=== PATIENT | female | born 1950 | race Caucasian/White ===

== ENCOUNTER 2020-07-19 11:41 | Day surgery (SDC) | payer MEDICARE, BC ==
[~2020-07-19] VITALS: Ht 152.4 cm; Wt 56.7 kg
--- NOTE | ~2020-07-19 | HEMODYNAMI ---
PATIENT:KRISHAN PUGA MEDICAL RECORD: [id number] : 50 LOCATION:[facility] ADMISSION DATE: 07/19/20 Generatedon:114:40 Patient name: KRISHAN PUGA Patient #: [id number] SSN: DO B: 1950 Date of study: 07/19/2020 Page: Of Hemodynamic Procedure Report Patient Data Patient Demographics Procedure consent was obtained First Name: KRISHAN Gender: Female Last Name: VIVIEN : 1950 Middle Initial: R Age: 69 year(s) Patient #: [id number] Race: Unknown Additional ID: [id number] Contact details [address]: [address] [place] [address] State: [place] City: [place] Zip code: [address] Past Medical History Allergies Allergen Reaction Date Comments Reported Other allergy 07/19/2020 CODEINE, SULFA Admission Admission Data Admission Date: 07/19/2020 Admission Time: 11:41 Procedure Procedure Types Cath Procedure Diagnostic Procedure PPM/ICD Loop Recorder Implant Procedure Description Procedure Date Procedure Date: 07/19/2020 Procedure Start Time: 14:29 Procedure End Time: 14:37 Procedure Staff Name Function Fausto Guerrero MD Performing Physician Joi Santoyo RT Monitor Toña Kimball RT Scrub Norm Jensen RN Nurse Procedure Data Cath Procedure Fluoroscopy Diagnostic fluoroscopy Total fluoroscopy Time: 0 time: 0 min min Diagnostic fluoroscopy Total fluoroscopy dose: 0 dose: 0 mGy mGy Estimated blood loss: 5 ml Procedure Complications No complications Procedure Medications Medication Administration Route Dosage 0.9% NaCl I.V. 100 ml/hr Versed I.V. 1 mg Fentanyl I.V. 50 mcg Ancef (1Gm/50ml NS) I.V.P.B 1 g Hemodynamics Rest Heart Rate: 82 (bpm) Snapshots Pre Cath Intra NCS Post Cath Vital Signs Time Heart Resp SPO2 etCO2 NIBP (mmHg) Rhythm Pain Sedation Rate (ipm) (%) (mmHg) Status Level (bpm) 14:27:29 80 16 95 0 134/72(105) NSR 0 (11) 10(A) , No pain 14:31:45 81 16 97 0 143/81(114) NSR 0 (11) 10(A) , No pain 14:36:05 75 16 98 0 132/72(106) NSR 0 (11) 10(A) , No pain Medications Time Medication Route Dose Verified Delivered Reason Notes Effective ness by by 14:26:27 Ancef I.V.P.B 1 g Norm Norm Per (1Gm/50ml Mikey Jensen physician NS) RN RN 14:26:53 0.9% NaCl I.V. 100 Norm Norm Per ml/hr Mikey Jensen physician RN RN 14:28:31 Versed I.V. 1 mg Norm Norm for Lorigan Lorigan sedation RN RN 14:28:44 Fentanyl I.V. 50 Norm Norm for mcg Lorigan Lorigan sedation RN blender laborer Log Time Note 14:14:44 Informed consent obtained and on chart 14:15:05 Procedure Status PPM/ Gen Change/ Lead Revision/ Temp. 14:15:07 Norm Jensen RN sent for patient. Start room use. 14:15:08 Time tracking: Regular hours (M-F 7:00 - 5:00) 14:15:13 Plan of Care:Hemodynamics will remain stable., Cardiac rhythm will remain stable., Comfort level will be maintained., Respiratory function will remain adequate., Patient/ family verbilizes understanding of procedure., Procedure tolerated without complication., Recovers from procedure without complications.. 14:16:19 H&P Date Dictated: 06/28/2020 Within 30 days and on chart., H&P Addendum completed by physician on day of procedure. (MUST COMPLETE FOR ALL OUTPATIENTS). 14:16:32 Patient allergic to Other allergyCODEINE, SULFA 14:19:10 Patient arrived from Pre/Post Procedure Room to CCL 1. Patient remains on bed/stretcher for procedure. 14:19:12 Warm blankets applied, and eileen hugger turned on for patient comfort. 14:19:12 Correct patient and procedure confirmed by team. 14:19:12 ECG and BP/O2 sat monitors applied to patient. 14:19:14 Pre-procedure instructions explained to patient. 14:19:14 Pre-op teaching completed and patient verbalized understanding. 14:19:15 Family in patients room. 14:19:17 Patient NPO since Midnight. 14:19:19 Is the patient allergic to Iodine/contrast media? Yes. 14:20:39 Is patient on blood thinner?No 14:20:40 Patient diabetic? No. 14:20:43 Patient not . Patient is over age 55. 14:20:45 Previous problem with sedation/anesthesia? No ? 14:20:46 Snore? Yes 14:20:47 Sleep apnea? No 14:20:47 Deviated septum? No 14:20:48 Opens mouth fully? No 14:20:49 Sticks out tongue? Yes 14:20:51 Airway obstruction? No ? 14:20:53 Dentures? No ? 14:20:56 Patient pain scale 0/10 ?. 14:21:06 IV patent on arrival in left antecubital with 0.9% NaCl at [facility]. 14:21:13 Mid Chest area was prepped with chlora-prep and draped in sterile fashion 14:21:14 Alarms reviewed by R. N. 14:21:15 Sharps counted by scrub and verified by R.N. 14:24:48 [employer] Linq Loop Recorder opened to sterile field. 14:26:22 Vital chart was started 14:26:27 Ancef (1Gm/50ml NS) 1 g I.V.P.B was administered by Norm Jensen RN; Per physician; Verbal order read back and verified. 14:26:29 Baseline sample Acquired. 14:26:34 Rhythm: sinus rhythm 14:26:35 Full Disclosure recording started 14::53 0.9% NaCl 100 ml/hr I.V. was administered by Norm Jensen RN; Per physician; Verbal order read back and verified. 14::59 --------ALL STOP TIME OUT------ 14::59 Final Timeout: patient, procedure, and site verified with staff and physician. All members of the team are in agreement. 14:27:02 Mid Chest site verified by team. 14:27:05 Fire Safety Assessment: A--An alcohol-based skin anteseptic being used preoperatively., C--Open oxygen or nitrous oxide is being used. 14:27:07 Physical assessment completed. ASA score P 2 - A patient with mild systemic disease as per Fausto Guerrero MD. 14:27:11 Sedation plan: IV Moderate Sedation Medication:Versed, Fentanyl 14:28:31 Versed 1 mg I.V. was administered by Norm Jensen RN; for sedation; Verbal order read back and verified. 14:28:35 Procedure started. 14:28:44 Fentanyl 50 mcg I.V. was administered by Norm Jensen RN; for sedation; Verbal order read back and verified. 14:29:18 Lidocaine 1% was administered to mid chest by Fausto Guerrero MD . 14:29:28 Incision made to mid chest. 14:30:50 Linq was inserted subcutaneously to mid chest. 14:31:02 Mid Chest incision was dressed with Dermabond and Steri Strip 14:32:09 Procedure ended.(Physican Out) 14:33:47 Fluoroscopy time 00.00 minutes. 14:33:49 Fluoroscopy dose: 0 mGy 14:33:49 Flurop Dose total: 0 14:33:58 Post-procedure physical assessment completed. ASA score P 2 - A patient with mild systemic disease as per Fausto Guerrero MD. 14:34:01 Post procedure rhythm: sinus rhythm 14:34:04 Estimated blood loss: 5 ml 14:34:05 Post procedure instruction explained to patient.Patient verbalizes understanding. 14:34:05 Patient needs reinforcement of post procedure teaching. 14:34:29 Procedure and supply charges have been captured, reviewed, submitted and are correct. 14:34:31 Procedure Complication : No complications 14:37:27 Vital chart was stopped 14:37:31 Operative report dictated upon procedure completion. 14:37:31 See physician's report for complete and final results. 14:37:32 Report given to Pre/Post Procedure Room. 14:37:35 Patient transfered to Pre/Post Procedure Room with Bed. 14:37:38 Procedure ended. 14:37:38 Full Disclosure recording stopped 14:37:42 End room use (Document Last) 14:40:14 Procedure ended.(Physican Out) Device Usage Item Name Manufacture Quantity Catalog Hospital Part Current Minimal Lot# / Number Charge Number Stock Stock Serial# Code Medtronic Medtronic 1 [id number] Linq Loop Recorder Signature Audit [place] Stage Time Signature Unsigned Intra-Procedure 07/19/2020 Toña Kimball 2:39:57 PM RT(R) Intra-Procedure 07/19/2020 Norm 2:40:14 PM Mikey TEJEDA Intra-Procedure 07/19/2020 Fausto Medeiros 2:40:30 PM Mike [address] [address] [place] [address]
[2020-07-19] MEDS ORDERED: SINEMET 25-1001 EAC1 PO (12:06)
[2020-07-19] MEDS ORDERED: COZAAR25 MG PO (12:07)
[2020-07-19] MEDS ORDERED: CELEXA20 MG PO (12:07)
[2020-07-19] MEDS ORDERED: HCTZ25 MG PO (12:08)
[2020-07-19] MEDS ORDERED: MULTI-DAY VITAM1 TAB PO (12:09)
[2020-07-19] MEDS ORDERED: VITAMIN D-32000 UNIT PO (12:09)
[2020-07-19] MEDS ORDERED: POTASSIUM99 M1 PO (12:10)
[2020-07-19] MEDS ORDERED: MAG-OX 400 MG400 MG PO (12:10)
[2020-07-19] MEDS ORDERED: VITAMIN B-122500 MCG PO (12:10)
[2020-07-19] MEDS ORDERED: CALCIUM 600 +1 EAC3 PO (12:11)
[2020-07-19 12:33] VITALS: BP 152/80; Ht 152.4 cm; Wt 56.7 kg
--- NOTE | 2020-07-19 14:45 | NUR ---
PT REC'D TO CATH RECOVERY ROOM 3 VIA STRETCHER. MONITORS ESTAB. AT BS. SEE INSPECTOR SCALES. ALARMS ON AND C/L IN REACH.
--- NOTE | 2020-07-19 15:00 | NUR ---
DR. ROSEN IN TO SEE PT, UPDATE GIVEN AND QUESTIONS ANSWERED. L CHEST SITE C/D/I, NO S/S DRAINAGE OR REDNESS. VSS. PT ATE MCDONALDS THAT BROUGHT. DENIES PAIN OR NEEDS. C/L IN REACH.
--- NOTE | 2020-07-19 15:32 | NUR ---
JOAQUIM WITH [employer] HERE, LINQ PROGRAMMED. PT AND INSTRUCTED ON USE OF OF LINQ RECORDER. ALL EQUIPMENT AND INSTRUCTIONS WILL BE SENT WITH PT. PT HAS F/U APPT ON 07/25 WITH JD.
--- NOTE | 2020-07-19 15:40 | NUR ---
L CHEST INCISION C/D/I, NO REDNESS OR DRAINAGE NOTED. VSS.
--- NOTE | 2020-07-19 15:47 | NUR ---
ALL DISCHARGE INSTRUCTIONS REVIEWED WITH PT AND , BOTH VERBALIZE UNDERSTANDING. PIV D/C'D INTACT, DSG APPLIED. PT UP TO GET DRESSED WITH ASSIST.
--- NOTE | 2020-07-19 15:52 | NUR ---
PT D/C'D VIA WC TO PRIVATE VEHICLE WITH ALL PAPERWORK AND BELONGINGS.
--- NOTE | 2020-07-20 11:32 | OP ---
PATIENT NAME: KRISHAN VALERA MEDICAL RECORD: [id number] :50 LOCATION:[facility] ADMISSION DATE: SURGEON: OSVALDO ROSEN MD DATE OF OPERATION: 07/19/2020 PROCEDURE: LINQ monitor. INDICATION: Syncope in origin. DESCRIPTION OF PROCEDURE: After local anesthesia with lidocaine, a single stab incision was made and a blunt dissection was carried out. Next, the LINQ was placed into the intercostal space in the usual fashion and the incision was closed with Steri-Strips. IMPRESSION: Successful lead placement for Krishan Valera. COMPLICATIONS: None. FLOOR: Stable. TRANSINT:[id number] Voice Confirmation ID: [id number] DOCUMENT ID: [id number] OSVALDO ROSEN MD at 1132 CC: [id number] DICTATION DATE: 07/19/20 1519 CHIEF HYDROELECTRIC STATION OPERATOR: 07/19/20 2301 [facility] [place] 07/19/20 [id number] [place] [address]
== END 2020-07-19 15:52 | disposition home or self-care (01) ==
LOC: D.CATH 11:41
PROVIDERS: ATTEND Internal Medicine Interventional Cardiology
DX: R55 Syncope and collapse (principal); I10 Essential (primary) hypertension

== ENCOUNTER 2020-10-06 11:29 | Day surgery (SDC) | payer MEDICARE, BC ==
[~2020-10-06] VITALS: Ht 152.4 cm; Wt 55.5 kg
--- NOTE | ~2020-10-06 | HEMODYNAMI ---
PATIENT:KRISHAN PUGA MEDICAL RECORD: [id number] : 50 LOCATION:[facility] ADMISSION DATE: 10/06/20 Generatedon:113:56 Patient name: KRISHAN PUGA Patient #: [id number] SSN: [id number] : 1950 Date of study: 10/06/2020 Page: Of Hemodynamic Procedure Report Patient Data Patient Demographics Procedure consent was obtained First Name: KRISHAN Gender: Female Last Name: VIVIEN : 1950 Middle Initial: R Age: 69 year(s) Patient #: [id number] Race: SSN: [id number] Additional ID: [id number] Contact details Address: [address] [place] [address] State: [place] City: [place] Zip code: [address] Past Medical History Allergies Allergen Reaction Date Comments Reported Other allergy 07/19/2020 CODEINE, SULFA Admission Admission Data Admission Date: 10/06/2020 Admission Time: 11:29 Height (in.): 60 BSA: 1.52 (m2) Height (cm.): 152.4 BMI: 24.02 (kg/m2) Weight (lbs.): 123 Weight (kg.): 55.79 Lab Results Lab Result Date: 10/06/2020 Lab Result Time: 0:00 Biochemistry Name Units Result Min Max BUN mg/dl 13 --(--*-)-- 7 18 Creatinine mg/dl 0.7 --(*---)-- 0.6 1.3 Procedure Procedure Types Cath Procedure Diagnostic Procedure PPM/ICD PPM Dual Implant Sedation Charges Moderate Sedation 40-54 minutes Procedure Description Procedure Date Procedure Date: 10/06/2020 Procedure Start Time: 13:21 Procedure End Time: 13:52 Procedure Staff Name Function Fausto Guerrero MD Performing Physician Troy Machuca RN Nurse Chica Cotter RT Monitor Nya Quinones RT Scrub Brock Jackson MD Assisting physician Adiel Lamas RN Nurse Procedure Data Cath Procedure Fluoroscopy Diagnostic fluoroscopy Total fluoroscopy Time: 1.6 time: 1.6 min min Diagnostic fluoroscopy Total fluoroscopy dose: dose: 13.45 mGy 13.45 mGy Estimated blood loss: 5 ml Procedure Complications No complications Procedure Medications Medication Administration Route Dosage 0.9% NaCl I.V. 25 ml/hr Ancef (1Gm/50ml NS) I.V.P.B 1 g Ancef Irrigation Topical 1 g (1gm/500ml NS) Lidocaine 1% added to field 20 Versed I.V. 1 mg Fentanyl I.V. 50 mcg Versed I.V. 1 mg Fentanyl I.V. 50 mcg Versed I.V. 1 mg Fentanyl I.V. 50 mcg Hemodynamics Rest BSA: 1.52 (m2) O2 Consumption: Estimated: 142.08 (ml/min) O2 Consumption indexed : Estimated:93.47 (ml/min/m) Heart Rate: 73 (bpm) Snapshots Pre Cath Intra NCS Post Cath Vital Signs Time Heart Resp SPO2 NIBP (mmHg) Rhythm Pain Sedation Rate (ipm) (%) Status Level (bpm) 12:51:51 87 17 96 142/80(94) NSR 0 (11) 10(A) , No pain 12:56:09 83 22 98 136/63(99) NSR 0 (11) 10(A) , No pain 13:01:08 81 19 100 104/86(92) NSR 0 (11) 10(A) , No pain 13:06:03 77 19 100 126/64(91) NSR 0 (11) 10(A) , No pain 13:10:17 76 14 99 114/61(84) NSR 0 (11) 10(A) , No pain 13:14:27 76 12 99 129/63(107) NSR 0 (11) 10(A) , No pain 13:18:43 75 11 99 117/58(80) NSR 0 (11) 10(A) , No pain 13:22:57 77 12 99 109/54(75) NSR 0 (11) 9(A) , No pain 13:27:09 79 10 99 107/53(79) Paced 0 (11) 9(A) , No pain 13:31:17 99 11 99 91/57(66) Paced 0 (11) 9(A) , No pain 13:35:19 84 11 98 101/59(87) Paced 0 (11) 9(A) , No pain 13:39:24 77 12 99 114/59(83) Paced 0 (11) 9(A) , No pain 13:43:34 89 13 100 113/64(96) Paced 0 (11) 9(A) , No pain 13:47:38 86 14 100 123/75(96) Paced 0 (11) 10(A) , No pain 13:52:29 84 12 99 135/68(94) Paced 0 (11) 10(A) , No pain Medications Time Medication Route Dose Verified Delivered Reason Notes Effectiv eness by by 12:53:03 0.9% NaCl I.V. 25 Fausto Troy used for ml/hr St Mike Machuca RN procedure 12:53:13 Ancef I.V.P.B 1 g Fausto Troy used for (1Gm/50ml St Mike Machuca RN procedure NS) 12:53:23 Ancef Topical 1 g Fausto Congregation used for Irrigation St Mike Jackson MD procedure (1gm/500ml NS) 12:53:38 Lidocaine added 20ml Fausto Congregation for local 1% to vial St Mike Jackson MD anesthetic field x2 13:18:26 Versed I.V. 1 mg Fausto Troy for CesarMike Machuca RN sedation 13:18:36 Fentanyl I.V. 50 Fausto Troy for [facility] CesarMike Machuca RN sedation 13:22:00 Versed I.V. 1 mg Fausto Troy for CesarMike Machuca RN sedation 13:22:04 Fentanyl I.V. 50 Fausto Troy for [facility] CesarMike Machuca RN sedation 13:24:10 Versed I.V. 1 mg Fausto Troy for Cesar Sven RN sedation 13:24:13 Fentanyl I.V. 50 Fausto Troy for [facility] Cesar Sven RN sedation Procedure Log Time Note 12:29:34 Informed consent obtained and on chart 12:44:43 Adiel Lamas RN sent for patient. Start room use. 12:50:41 Vital chart was started 12:53:03 0.9% NaCl 25 ml/hr I.V. was administered by Troy Machuca RN; used for procedure; Verbal order read back and verified. 12:53:13 Ancef (1Gm/50ml NS) 1 g I.V.P.B was administered by Troy Machuca RN; used for procedure; Verbal order read back and verified. 12:53:20 Patient Height : 60 inches 12:53:22 Patient Weight : 123 lbs 12:53:23 Ancef Irrigation (1gm/500ml NS) 1 g Topical was administered by Brock Jackson MD; used for procedure; Verbal order read back and verified. 12:53:38 Lidocaine 1% 20ml vial x2 added to field was administered by Brock Jackson MD; for local anesthetic; Verbal order read back and verified. 12:54:19 Lab Result : BUN 13 mg/dl 12:54:19 Lab Result : Creatinine 0.7 mg/dl 12:54:26 Procedure Status PPM/ Gen Change/ Lead Revision/ Temp. 12:54:49 Time tracking: Regular hours (M-F 7:00 - 5:00) 12:54:53 Plan of Care:Hemodynamics will remain stable., Cardiac rhythm will remain stable., Comfort level will be maintained., Respiratory function will remain adequate., Patient/ family verbilizes understanding of procedure., Procedure tolerated without complication., Recovers from procedure without complications.. 12:55:12 Patient received from Pre/Post Procedure Room to CCL 3 Alert and oriented. Tansferred to table in Supine position. 12:55:14 Warm blankets applied, and eileen hugger turned on for patient comfort. 12:55:14 Correct patient and procedure confirmed by team. 12:55:15 Baseline sample Acquired. 12:55:15 ECG and BP/O2 sat monitors applied to patient. 12:55:21 Rhythm: sinus rhythm 12:55:23 Full Disclosure recording started 12:55:27 H&P Date Dictated: 10/06/2020 Within 30 days and on chart., H&P Addendum completed by physician on day of procedure. (MUST COMPLETE FOR ALL OUTPATIENTS). 12:55:28 Pre-procedure instructions explained to patient. 12:55:28 Pre-op teaching completed and patient verbalized understanding. 12:55:33 Family in patients room. 12:55:34 Patient NPO since Midnight. 12:55:37 Is the patient allergic to Iodine/contrast media? No. 12:55:40 Was the patient premedicated? No 12:55:46 Is patient on blood thinner?No 12:56:20 Patient diabetic? No. 12:56:24 Previous problem with sedation/anesthesia? No ? 12:56:37 Snore? Yes 12:56:39 Sleep apnea? No 12:56:40 Deviated septum? No 12:56:41 Opens mouth fully? Yes 12:56:42 Sticks out tongue? Yes 12:56:43 Airway obstruction? No ? 12:56:46 Dentures? No ? 12:57:02 Left chest area was prepped with chlora-prep and draped in sterile fashion 12:57:03 Alarms reviewed by R. N. 12:57:04 Sharps counted by scrub and verified by R.N. 12:57:14 Use device set TED PPM 12:57:15 2-0 Ticron Multipack ([id number]) opened to sterile field. 12:57:16 3-0 Vicryl Single Pack [id number] opened to sterile field. 12:57:16 5-0 Monocryl PS2 [id number] opened to sterile field. 12:57:17 Cautery Tip Control Operator Flow Coat opened to sterile field. 12:57:18 Cautery Pushbutton Pencil opened to sterile field. 12:57:19 Mepilex Dressing ([id number]) opened to sterile field. 12:57:34 [employer]tr[employer] union contract representative Zander Rascon present for procedure. 12:57:47 Pre sharps counted by scrub and verified by RN: Sutures: 7; Sponges: 5; Stick needles: 2; Skin needles: 2; Blade: 1; Cautery: 1 12:57:49 Grounding pad site Left thigh. 12:57:50 Grounding pad site free from injury. 13:05:06 Sedation plan: IV Moderate Sedation Medication:Versed, Fentanyl 13:08:51 Physician paged 13:17:10 Physician arrived 13:17:10 --------ALL STOP TIME OUT------ 13:17:11 Final Timeout: patient, procedure, and site verified with staff and physician. All members of the team are in agreement. 13:17:14 Left chest site verified by team. 13:17:18 Fire Safety Assessment: A--An alcohol-based skin anteseptic being used preoperatively., C--Open oxygen or nitrous oxide is being used., D--An ESU, laser, or fiber-optic light is being used. 13:17:23 Physical assessment completed. ASA score P 2 - A patient with mild systemic disease as per Fausto Guerrero MD. 13:18:26 Versed 1 mg I.V. was administered by Troy Machuca RN; for sedation; Verbal order read back and verified. 13:18:36 Fentanyl 50 mcg I.V. was administered by Troy Machuca RN; for sedation; Verbal order read back and verified. 13:20:39 Procedure started. 13:21:13 Lidocaine 1% was administered to left subclavicular area by Brock Jackson MD . 13:21:21 Incision made to left subclavicular area. 13:22:00 Versed 1 mg I.V. was administered by Troy Machuca RN; for sedation; Verbal order read back and verified. 13:22:04 Fentanyl 50 mcg I.V. was administered by Troy Machuca RN; for sedation; Verbal order read back and verified. 13:22:[address] Medtronic [address] ALB[address] XT [address] Generator [id number] opened to sterile field. 13:23:12 Medtronic 4574-45 PPM Lead opened to sterile field. 13:24:10 Versed 1 mg I.V. was administered by Troy Machuca RN; for sedation; Verbal order read back and verified. 13:24:13 Fentanyl 50 mcg I.V. was administered by Troy Machuca RN; for sedation; Verbal order read back and verified. 13:26:21 Medtronic 4074-52 PPM Lead opened to sterile field. 13:28:32 Generator pocket made/opened. 13:28:36 Left subclavian vein accessed with 7Fr Peel Away Sheath. 13:28:38 Left subclavian vein accessed with 7Fr Peel Away Sheath. 13:28:44 Ventricular lead inserted and advanced. 13:28:46 Atrial lead inserted and advanced. 13:32:10 Ventricular lead positioned. 13:32:13 Atrial lead positioned. 13:32:15 Peel-a-way sheath was split and removed. 13:32:52 Ventricular lead attachment was completed with 2-0 ticron. 13:32:56 Atrial lead attachment was completed with 2-0 ticron. 13:32:59 PPM Dual was attached to lead(s) and inserted into pocket. 13:39:10 PPM Dual was removed.. 13:39:15 Ventricular lead repositioned. 13:40:52 Ventricular lead attachment was completed with 2-0 ticron. 13:41:20 PPM Dual was attached to lead(s) and inserted into pocket. 13:41:27 Generator was sutured in place with 2-0 ticron. 13:42:02 Device pocket was irrigated with Ancef. 13:46:34 Parameters-- Generator: Mode: DDDR. Lower Rate: 60bpm. Upper Rate: 120bpm. 13:47:02 Parameters--Ventricular P/R Wave: 9.0mV. Current: 0.9mA; Threshold: 0.7V; Impedence: 1361OHMS. 13:47:19 Parameters--Atrial P/R Wave: 2.1mV. Current: 0.3mA; Threshold: 0.2V; Impedence: 560OHMS. 13:49:15 Skin closure was completed with 5-0 monocryl. 13:49:22 Lt Chest incision was dressed with Mepilex dressing. 13:49:36 Procedure ended.(Physican Out) 13:50:13 Fluoroscopy time 01.60 minutes. 13:50:35 Fluoroscopy dose: 13.45 mGy 13:50:35 Flurop Dose total: 13.45 13:50:42 Dose Area Product 157.62 mGy/cm. 13:50:46 Sharps counted by scrub and verified by R.N. 13:50:47 Insertion/operative site no bleeding no hematoma. 13:51:10 Post Procedure Pulses reassessed and unchanged 13:51:14 Post procedure rhythm: paced 13:51:17 Estimated blood loss: 5 ml 13:51:18 Post procedure instruction explained to patient.Patient verbalizes understanding. 13:51:19 Patient needs reinforcement of post procedure teaching. 13:52:10 Procedure and supply charges have been captured, reviewed, submitted and are correct. 13:52:14 Procedure Complication : No complications 13:52:17 Vital chart was stopped 13:52:25 Operative report dictated upon procedure completion. 13:52:26 See physician's report for complete and final results. 13:52:28 Report given to Pre/Post Procedure Room. 13:52:33 Patient transfered to Pre/Post Procedure Room with Stretcher. 13:52:36 Procedure ended. 13:52:36 Full Disclosure recording stopped 13:53:42 End room use (Document Last) 13:54:47 Procedure type changed to Cath procedure, Diagnostic procedure, PPM/ICD, PPM Dual Implant, Sedation Charges, Moderate Sedation 40-54 minutes Device Usage Item Name Manufacture Quantity Catalog Hospital Part Current Minima l Lot# / Number Charge Number Stock Stock Serial# Code 2-0 Ticron Ethicon 0 [id number] 04742 568808 5 Multipack ([id number]) 3-0 Vicryl Ethicon 1 [id number] 068458 184688 [id number] 5 Single Pack [id number] 5-0 Monocryl Ethicon 1 [id number] 167628 295145 033546 5 PS2 [id number] Cautery Tip Microtek 1 [id number] 338604 107986 [id number] 5 Control Operator Flow [employer] Cautery Microtek 1 [id number] 97562 350400 5 Pushbutton [employer] Pencil Mepilex Cardinal 1 [id number] 989828 496431 [id number] 5 Dressing Health ([id number]) Medtronic Medtronic 1 [id number] [id number] [id number] [id number] MAR[address] ALBERTO XT [address] EXP Generator 11-02-2021 [id number] Medtronic Medtronic 1 4574-45 248799 330264 [id number] 5 [id number] 4574-45 PPM EXP Lead 12-02-2021 Medtronic Medtronic 1 4074-52 [id number] [id number] [id number] 5 [id number] 4074-52 PPM EXP Lead 01-10-2022 Signature Audit [place] Stage Time Signature Unsigned Intra-Procedure 10/06/2020 Chica Cotter 1:55:17 PM RT(R) Intra-Procedure 10/06/2020 Troy Machuca RN 1:55:58 PM Intra-Procedure 10/06/2020 Fausto Medeiros 1:56:39 PM [id number] [place] [address]
[~2020-10-06 11:29] MED LIST: CALCIUM 600 +1 EAC3 PO; CELEXA20 MG PO; COZAAR25 MG PO; HCTZ25 MG PO; MAG-OX 400 MG400 MG PO; MULTI-DAY VITAM1 TAB PO; POTASSIUM99 M1 PO; SINEMET 25-1001 EAC1 PO; VITAMIN B-122500 MCG PO; VITAMIN D-32000 UNIT PO
[2020-10-06] MEDS ORDERED: SINEMET CR 50/21 TAB PO (11:54)
[2020-10-06] MEDS ORDERED: STALEVO 200 TAB1 TAB PO (12:00)
[2020-10-06 12:23] VITALS: BP 140/77; Ht 152.4 cm; Wt 55.5 kg
[2020-10-06 12:36] LABS: HEMATOCRIT 42.8 % (36.0-48.0); HEMOGLOBIN 14.9 g/dL (12-16); MCH 31.8 pg (26.0-34.0); MCHC 34.8 g/dL (31.0-37.0); MCV 91.5 fL (80.0-100.0); MEAN PLATELET VOLUME 7.9 fL (7.4-10.4); RBC 4.68 10x6/uL (4.00-5.40); RDW 13.7 % (11.5-14.5); WBC 7.5 10x3/uL (4.8-10.8)
[2020-10-06 12:44] LABS: CALC OSMOLALITY 280 mosm/kg (275-300); CALCIUM 10.4 mg/dL (8.5-10.1); CARBON DIOXIDE 31.1 mmol/L (21.0-32.0); CHLORIDE - SERUM 104 mmol/L (98-107); CREATININE - SERUM 0.7 mg/dL (0.6-1.3); GLUCOSE 101 mg/dL (74-106); POTASSIUM - SERUM 3.7 mmol/L (3.5-5.1); SODIUM 141 mmol/L (136-145); UREA NITROGEN 13 mg/dL (7-18); eGFR NON AFRICAN AMERICAN 88 mL/min (90-120)
[2020-10-06 13:07] LABS: APTT 28.3 SECONDS (22.8-39.4); INR 1.11 (0.85-1.17); PROTIME 13.2 SECONDS (11.6-15.0)
--- NOTE | 2020-10-06 14:07 | NUR ---
PT ARRIVES TO ROOM 5 VIA STRETCHER S/P PPM. SEE ELECTRICAL CONTRACTOR. PT PLACED ON MONITORS ALRAMS ON AND PLACED IN PACER MODE. PT DENIES PAIN OR NEEDS, LIGHT WITH IN REACH
--- NOTE | 2020-10-06 14:19 | NUR ---
PT RESTING QUIETLY , VSS, NSR, LEFT MEPILEX IN PLACE LEFT ARM SLING INPLACE , DENIES PAIN OR NEEDS, CALL LIGHT WTIH IN REACH, FAMILY AT BEDSIDE
--- NOTE | 2020-10-06 14:35 | NUR ---
PT PLACED IN SEMI FOWLERS , DENIES NEEDS OR PAIN, DRESSING IN PLACE , VSS, NSR, CALL LIGHT WITH IN REACH
--- NOTE | 2020-10-06 15:00 | NUR ---
DISCHARGE TEACHING STARTED AND COMPLETED. 22G IV REMOVED FROM LEFT ARM DRESSING APPLIED, PT DENIES PAIN OR NEEDS, PT VERBALIZED UNDERSTANDING OF DISCHARGE INSTRUCTIONS
--- NOTE | 2020-10-06 15:20 | NUR ---
ASSISTED PT DRESSING. PT AMBULATES TO BATHROOM WITH ASSISTANCE FROM WALKER AND FAMILY VOIDS WITH OUT DIFFICULTY, PT TAKEN TO FAMILY CAR VIA WHEELCHAIR
--- NOTE | 2020-10-07 11:18 | OP ---
PATIENT NAME: KRISHAN VALERA MEDICAL RECORD: [id number] :50 LOCATION:D.CAT ADMISSION DATE: SURGEON: OSVALDO ROSEN MD DATE OF OPERATION: 10/06/2020 PROCEDURE: Lead portion of permanent pacemaker placement. DESCRIPTION OF PROCEDURE: After left subclavian was cannulated via modified Seldinger via Dr. Jackson first under fluoroscopic guidance, I placed the RV lead into the RV apex without difficulty. Adequate R-wave threshold was obtained, placed right atrial lead in right atrial appendage without difficulty. After adequate P waves and thresholds were obtained, the leads were attached to the appropriate poles of the generator and the pocket was closed by Dr. Jackson. IMPRESSION: Successful lead portion of permanent pacemaker placement for Dr. Valera. ESTIMATED BLOOD LOSS: Minimal. COMPLICATIONS: None. DISPOSITION: To the floor, stable. TRANSINT:[id number] Voice Confirmation ID: [id number] DOCUMENT ID: [id number] OSVALDO ROSEN MD at 1118 CC: [id number] DICTATION DATE: 10/06/20 1346 WATER GAS OPERATOR: 10/06/20 1844 [facility] 10/06/20 [facility] [address] [place] [address]
--- NOTE | 2020-10-10 14:49 | OP ---
PATIENT NAME: KRISHAN PUGA MEDICAL RECORD: [id number] :50 LOCATION:D.CAT ADMISSION DATE: SURGEON: MURALI JEAN MD DATE OF OPERATION: 10/06/2020 PREOPERATIVE DIAGNOSIS: Sick sinus syndrome with pauses. POSTOPERATIVE DIAGNOSIS: Sick sinus syndrome with pauses. PROCEDURE: Left subclavian vein dual lead pacemaker placement. SURGEON: Murali Jean MD CO-SURGEON: Fausto Barba MD REPORT OF OPERATION: The patient's left chest was prepped and draped in sterile fashion. A 20 mL of 1% lidocaine with epinephrine was infused into the surrounding tissues. A transverse incision was made on the left superior lateral chest and a subcutaneous pouch was made over the pectoral fascia. [place] were used to cannulate the left subclavian vein and guidewires were advanced with ease. Fluoroscopy was used to note that the wires were in good position in the venous system. Dilator trocar devices were placed over the wires and the wires and dilators were removed. The leads were advanced through the trocars until they rested in the superior vena cava. At this point, Dr. Barba positioned the leads were appropriately in the atrium and ventricle. Once the leads were noted to be in good position then these were sutured into place with 2-0 Ti-Cron. The leads were affixed to the pacemaker, which was placed into the subcutaneous pouch and sutured down with a single interrupted 2-0 Ti-Cron. We irrigated out the wound bed with antibiotic solution. The subcutaneous tissues were reapproximated with interrupted 3-0 Vicryl and the skin was closed with running subcutaneous 5-0 Monocryl. COMPLICATIONS: None. CONDITION: Stable. ANESTHESIA: Local MAC. BLOOD LOSS: Minimal. TRANSINT:[id number] Voice Confirmation ID: [id number] DOCUMENT ID: [id number] MURALI JEAN MD at 1449 CC: [id number] DICTATION DATE: 10/06/20 1422 LAY OUT MACHINE OPERATOR: 10/06/20 1841 [facility] 10/06/20 [place] [address]
== END 2020-10-06 15:40 | disposition home or self-care (01) ==
LOC: D.CATH 11:29
PROVIDERS: ATTEND Internal Medicine Interventional Cardiology
DX: I49.5 Sick sinus syndrome (principal); R55 Syncope and collapse; I10 Essential (primary) hypertension